=== PATIENT | male | born 1980 | race Caucasian/White ===

== ENCOUNTER 2017-07-26 18:43 | Emergency (ER) | payer SELFPAY ==
[~2017-07-26 18:43] MED LIST: AMLO10 PO; GLUCOMTESTSTRIPS XX; LISI10 PO; LITH300 PO; METF500 PO; RISP0.252 PO
[2017-07-26 18:46] VITALS: BP 140/82; PULSE 100; RESP 14; TEMP 98; O2SAT 99
--- NOTE | 2017-07-26 19:38 | PD ---
HPI Chief Complaint: Complaint Time Seen by Provider: 19:27 Travel History International Travel<30 days: No Contact w/Intl Traveler<30days: No Traveled to known affect area: No History of Present Illness HPI 37-year-old male presents to the department complaining of dysuria for several weeks. Patient states that he had a sexual encounter with his ex-girlfriend around July 12 and he started developing his symptoms afterwards. Patient states that his girlfriend has had sexual encounters with others and has been using illicit drugs. Patient states that he has had clear mucus in his urine. Denies discharge, hematuria. Denies edema or lesions in his genital area. Patient denies fever or chills. Denies nausea, vomiting or diarrhea. Patient has a history of diabetes which apparently is well controlled. PFSH Past Medical History Cardiovascular Problems: Yes (NEW HTN) Diabetes: Yes (NEW TYPE 2) Diminished Hearing: No Past Surgical History Other Surgery: Yes (l shoulder srthroscopy/ vasectomy) Social History Alcohol Use: Yes (RARELY) Tobacco Use: Yes (1/2 PPD) Substance Use: Yes Allergies-Medications (Allergen,Severity, Reaction): Coded Allergies: Sulfa (Sulfonamide Antibiotics) (Unverified Allergy, Severe, RASH, 03/21/17 ) Reported Meds & Prescriptions Reported Meds & Active Scripts Active Glucometer Test Strips (Glucomteststrips) Box 1 Box XX Glucophage 500 mg (Metformin HCl) 500 Mg Tab 500 Mg PO BIDPC 30 Days Prinivil 10 mg (Lisinopril) 10 Mg Tab 10 Mg PO DAILY 30 Days Norvasc (Amlodipine Besylate) 10 Mg Tab 10 Mg PO DAILY 30 Days Reported Risperidone 0.25 Mg Tab 0.5 Mg PO Q12 [place] Carbonate Er ([place] Carbonate) 300 Mg Tab 300 Mg PO DAILY Review of Systems Except as stated in HPI: all other systems reviewed are Neg Physical Exam Narrative GENERAL: Well-developed well-nourished in no apparent distress SKIN: Focused skin assessment warm/dry. HEAD: Atraumatic. Normocephalic. EYES: Pupils equal and round. No scleral icterus. No injection or drainage. CARDIOVASCULAR: Regular rate and rhythm. No murmur appreciated. RESPIRATORY: No accessory muscle use. Clear to auscultation. Breath sounds equal bilaterally. GASTROINTESTINAL: Abdomen soft, non-tender, nondistended. MUSCULOSKELETAL: No obvious deformities. No clubbing. No cyanosis. No edema. exam deferred. NEUROLOGICAL: Awake and alert. No obvious cranial nerve deficits. Motor grossly within normal limits. Normal speech. PSYCHIATRIC: Appropriate mood and affect; insight and judgment normal. Data Data Last Documented VS Vital Signs Date Time Temp Pulse Resp B/P (MAP) Pulse Ox O2 Delivery O2 Flow Rate FiO2 07/26/17 18:46 98.0 100 14 140/82 (101) 99 Orders Orders Urinalysis - C+S If Indicated (07/26/17 18:53) Gc And Chlamydia Pcr (07/26/17 18:53) Azithromycin Powd Pack (Zithromax Powd P (07/26/17 19:45) Ceftriaxone Inj (Rocephin Inj) (07/26/17 19:45) Ed Discharge Order (07/26/17 20:06) Labs Laboratory Tests Test 07/26/17 19:20 Urine Color LIGHT-YELLOW Urine Turbidity CLEAR Urine pH 5.0 Urine Specific Chambers 1.005 Urine Protein NEG mg/dL Urine Glucose (UA) NEG mg/dL Urine Ketones NEG mg/dL Urine Occult Blood NEG Urine Nitrite NEG Urine Bilirubin NEG Urine Urobilinogen LESS THAN 2.0 MG/DL Urine Leukocyte Esterase NEG Urine RBC LESS THAN 1 /hpf Urine Squamous Epithelial Cells <1 /hpf Urine Mucus FEW /lpf Microscopic Urinalysis Comment CULT NOT INDICATED MDM Medical Decision Making Medical Screen Exam Complete: Yes Emergency Medical Condition: Yes Differential Diagnosis Gonorrhea, chlamydia, urinary tract infection, STI Narrative Course 37-year-old male presents to the department complaining of dysuria for several weeks. Patient states that he had a sexual encounter with his ex-girlfriend around July 12 and he started developing his symptoms afterwards. Patient states that his girlfriend has had sexual encounters with others and has been using illicit drugs. Patient states that he has had clear mucus in his urine. Denies discharge, hematuria. Denies edema or lesions in his genital area. Patient denies fever or chills. Denies nausea, vomiting or diarrhea. Patient has a history of diabetes which apparently is well controlled. Vital signs stable Physical exam findings unremarkable. GC chlamydia test sent. Urinalysis- no evidence of UTI Patient will be treated with Rocephin and azithromycin. Advised patient follow up with the health department for further testing and evaluation. Advised to have all partners treated as well. Advised to follow up with his primary care physician within 2-3 days. Return to emergency for worsening or persistent symptoms. Diagnosis Primary Impression: Urethritis Referrals: [facility] Patient Instructions: General Instructions, Nonspecific Urethritis in Men (DC) Additional Instructions: Follow up with your primary care physician within 2-3 days. If your symptoms persist or worsen, return to the emergency department. You were treated for an infection today. I recommend he follow up with the [facility] Department for further testing and evaluation. Disposition: 01 DISCHARGE HOME Condition: Stable Casi Matamoros Jul 26, 2017 19:38
[2017-07-26] MEDS ORDERED: AZITHROMYCIN PWD FOR SUSP 1 GM PACKET PO ONE (19:45)
[2017-07-26] MEDS ORDERED: cefTRIAXone 250 MG VIAL IM ONE (19:45)
[2017-07-26 19:54] LABS: BILIRUBIN, URINE NEG (NEG); BLOOD, URINE NEG (NEG); GLUCOSE,URINE NEG (NEG); KETONE, URINE NEG (NEG); MUCUS URINE FEW /lpf (OCC); NITRITE,URINE NEG (NEG); SQUAMOUS EPITHELIAL CELL URINE <1 /hpf (0-5); URINE COLOR LIGHT-YELLOW (YELLW/STRAW); URINE LEUKOCYTE ESTERASE NEG (NEG)
== END 2017-07-26 20:14 | disposition home or self-care (01) ==
LOC: NEPK 18:43
DX: N34.2 Other urethritis (principal); E11.9 Type 2 diabetes mellitus without complications; I10 Essential (primary) hypertension; F17.200 Nicotine dependence, unspecified, uncomplicated; Z79.899 Other long term (current) drug therapy; Z88.2 Allergy status to sulfonamides
CPT/HCPCS: 81001; 87491; 87591; 96372; 99284; J0696